=== PATIENT | male | born 1950 | race African-American/Black ===

== ENCOUNTER 2016-12-31 04:36 | Inpatient (IN) | payer MEDICARE, OTHER ==
[2016-12-31] MEDS ORDERED: ALBUTEROL SULFATE 0.083% NEB 2.5 MG/3 ML AMPUL NEB ONE ×3 (04:40→05:39)
[2016-12-31] MEDS ORDERED: IPRATROPIUM/ALBUTEROL 0.5-2.5 MG/3 ML AMPUL NEB ONE (04:40)
[2016-12-31] MEDS ORDERED: MAGNESIUM SULFATE/D5W 1 GM/100 ML RTUPB IV ONE ×2 (04:40)
--- NOTE | 2016-12-31 04:41 | ER Document Report ---
ED Respiratory Problem - General Stated Complaint: DIFFICULTY BREATHING Time seen by provider: 04:41 Mode of Arrival: Medic Information source: Patient, Emergency Med Personnel TRAVEL OUTSIDE OF THE [place] IN LAST 30 DAYS: No - HPI Patient complains to provider of: Cough, Short of breath Onset: Last week Duration: Worse/persistent Quality of pain: No pain Context: Hx COPD, Smoker Short of Breath: Severe Chest pain/discomfort: Tightness Cough: Productive Sputum amount: Small Sputum color: Yellow Sputum consistency: Mucoid EMS treatments: Bronchodilators, Solumedrol Associated symptoms: Congestion, Cough, Fever, Short of breath, Wheezing Similar symptoms previously: Yes Recently seen / treated by doctor: No Notes: Patient is a 66-year-old male who was brought to emergency room by EMS for respiratory distress, states he's had a productive cough and fever, symptoms have been worsening over the past week, patient is a smoker as well, he denies any chest pain, no vomiting or diarrhea, patient received breathing treatments as well as Solu-Medrol and Tylenol EMS in route to the hospital - Related Data Allergies/Adverse Reactions: aspirin [Aspirin] Allergy (Intermediate, Verified 09/24/16 11:33) "some swelling" Past Medical History - General Information source: Patient - Social History Smoking Status: Current Every Day Smoker Family History: Reviewed & Not Pertinent - Past Medical History Cardiac Medical History: Reports: Hx Hypercholesterolemia, Hx Hypertension - dx 2016 takes meds Denies: Hx Atrial Fibrillation, Hx Congestive Heart Failure, Hx Coronary Artery Disease, Hx Heart Attack, Hx Peripheral Vascular Disease, Hx Pulmonary Embolism, Hx Heart Murmur Pulmonary Medical History: Reports: Hx Asthma, Hx COPD - Sounds like he has smoking related lung disease, Hx Pneumonia - Denies: Hx Bronchitis, Hx Respiratory Failure, Hx Sleep Apnea, Hx Tuberculosis Neurological Medical History: Denies: Hx Cerebrovascular Accident - CT scan 10/2015 4 facial asymmetry. No stroke., Hx Seizures Endocrine Medical History: Reports: Hx Hypothyroidism. Denies: Hx Graves' Disease, Hx Hyperthyroidism Renal/ Medical History: Denies: Hx Benign Prostatic Hyperplasia, Hx End Stage Renal Disease, Hx Kidney Stones, Hx Peritoneal Dialysis Malignancy Medical History: Denies Hx Leukemia, Denies Hx Lung Cancer GI Medical History: Reports: Hx Ulcer - . Denies: Hx Crohn's Disease, Hx Gastroesophageal Reflux Disease, Hx Hiatal Hernia, Hx Irritable Bowel, Hx Liver Failure Musculoskeltal Medical History: Reports Hx Arthritis, Denies Hx Fibromyalgia, Denies Hx Multiple Sclerosis, Denies Hx Muscular Dystrophy Psychiatric Medical History: Denies: Hx Dementia Traumatic Medical History: Reports: Hx Fractures - right arm as child Infectious Medical History: Denies: Hx HIV Past Surgical History: Reports: Hx Orthopedic Surgery - L hip. Denies: Hx Appendectomy, Hx Bowel Surgery, Hx Cholecystectomy, Hx Colostomy, Hx Coronary Artery Bypass Graft, Hx Gastric Bypass Surgery, Hx Herniorrhaphy, Hx Pacemaker, Hx Tonsillectomy - Immunizations Hx Diphtheria, Pertussis, Tetanus Vaccination: Yes Review of Systems - Review of Systems Constitutional: Fever EENT: No symptoms reported Cardiovascular: No symptoms reported Respiratory: See HPI Gastrointestinal: No symptoms reported Genitourinary: No symptoms reported Male Genitourinary: No symptoms reported Musculoskeletal: No symptoms reported Skin: No symptoms reported Hematologic/Lymphatic: No symptoms reported Neurological/Psychological: No symptoms reported -: Yes All other systems reviewed and negative Physical Exam - Vital signs Vitals: Resp Pulse Ox 28 H 97 12/31/16 04:51 12/31/16 04:51 Interpretation: Tachycardic, Tachypneic - General General appearance: Appears well, Alert - HEENT Head: Normocephalic, Atraumatic Eyes: Normal Pupils: PERRL - Respiratory Respiratory status: Respiratory distress, Labored, Tachypnea Chest status: Nontender Breath sounds: Decreased air movement, Nonproductive cough, Wheezing Chest palpation: Normal - Cardiovascular Rhythm: Regular, Tachycardia Heart sounds: Normal auscultation Murmur: No - Abdominal Inspection: Normal Distension: No distension Bowel sounds: Normal Tenderness: Nontender Organomegaly: No organomegaly - Back Back: Normal, Nontender - Extremities General upper extremity: Normal inspection, Nontender, Normal color, Normal ROM , Normal temperature General lower extremity: Normal inspection, Nontender, Normal color, Normal ROM , Normal temperature, Normal weight bearing. No: Terry's sign - Neurological Neuro grossly intact: Yes Cognition: Normal Orientation: AAOx4 [place] Coma Scale Eye Opening: Spontaneous [place] Coma Scale Verbal: Oriented [place] Coma Scale Motor: Obeys Commands [place] Coma Scale Total: 15 Speech: Normal Motor strength normal: LUE, RUE, LLE, RLE Sensory: Normal - Psychological Associated symptoms: Normal affect, Normal mood - Skin Skin Temperature: Warm Skin Moisture: Dry Skin Color: Normal Course - Re-evaluation Re-evalutation: 12/31/16 05:30 Called to room by nursing staff to evaluate patient as he is trying to take all of his lines, BiPAP, monitor leads off, patient states he is having an anxiety attack, with the help of security he was helped back into bed, and given 2 mg of Ativan through the IV 12/31/16 06:06 Patient resting comfortably on BiPAP at this point, vital signs are stable, he still has diffuse wheezing bilaterally, but seems to be tolerating BiPAP much better at this point, patient was discussed with the hospitalist who agrees to admit for further evaluation and treatment - Vital Signs Vital signs: Temp Pulse Resp BP Pulse Ox 100.4 F 107 H 28 H 122/70 94 12/31/16 05:06 12/31/16 05:06 12/31/16 05:06 12/31/16 05:06 12/31/16 05:06 - Laboratory Result Diagrams: 12/31/16 05:00 12/31/16 05:00 Laboratory results interpreted by me: 12/31/16 12/31/16 12/31/16 05:00 05:00 05:00 WBC 16.0 H Hgb 13.1 L MCH 26.7 L RDW 16.8 H Absolute Neutrophils 9.4 H Absolute Lymphocytes 4.8 H Glucose 177 H Creatine Kinase 606 H CK-MB (CK-2) 5.00 H - Diagnostic Test Radiology reviewed: Image reviewed, Reports reviewed - EKG Interpretation by Me EKG shows normal: Sinus rhythm Rate: Tachycardia [place]/QRS: RBBB, LAHB/LAFB When compared to previous EKG there are: No significant change - Transfer of Care Care transferred to following provider: Dr. King Critical Care Note - Critical Care Note Total time excluding time spent on procedures (mins): 30 Comments: Patient arrived in respiratory distress with diffuse wheezing bilaterally, requiring BiPAP placement, multiple breathing treatments and IV magnesium Discharge - Discharge Clinical Impression: COPD exacerbation Condition: Fair Disposition: ADMITTED INPATIENT Admitting Provider: Hospitalist Unit Admitted: Telemetry
[2016-12-31 05:16] LABS: ABSOLUTE BASOPHILS # (AUTO) 0.1 10^3/uL (0.0-0.2); ABSOLUTE EOSINOPHILS # (AUTO) 0.3 10^3/uL (0.0-0.6); ABSOLUTE LYMPHOCYTES (AUTO) 4.8 10^3/uL (0.5-4.7); ABSOLUTE MONOCYTES (AUTO) 1.4 10^3/uL (0.1-1.4); ABSOLUTE NEUT (AUTO) 9.4 10^3/uL (1.7-8.2); BASOPHILS % (AUTO) 0.9 % (0-2); EOSINOPHILS % (AUTO) 1.7 % (0-6); HEMATOCRIT 39.9 % (37.9-51.0); HEMOGLOBIN 13.1 g/dL (13.5-17.0); HGB HCT DIFFERENCE -0.6; LYMPHOCYTES % (AUTO) 30.1 % (13-45); MEAN CORPUSCULAR HEMOGLOBIN 26.7 pg (27.0-33.4); MEAN CORPUSCULAR HGB CONC 32.8 g/dL (32.0-36.0); MEAN CORPUSCULAR VOLUME 81 fl (80-97); MONOCYTES % (AUTO) 8.8 % (3-13); RED BLOOD COUNT 4.91 10^6/uL (4.35-5.55); RED CELL DISTRIBUTION WIDTH 16.8 % (11.5-14.0); SEGMENTED NEUTROPHILS % (AUTO) 58.5 % (42-78)
[2016-12-31 05:26] LABS: ALANINE AMINOTRANSFERASE 48 U/L (21-72); ALKALINE PHOSPHATASE 98 U/L (38-126); ANION GAP 15 (5-19); ASPARTATE AMINO TRANSFERASE 51 U/L (17-59); BILIRUBIN,TOTAL 0.8 mg/dL (0.2-1.3); BLOOD UREA NITROGEN 20 mg/dL (7-20); CALCIUM 9.2 mg/dL (8.4-10.2); CARBON DIOXIDE 26 mmol/L (22-30); CHLORIDE 98 mmol/L (98-107); CREATINE KINASE 606 U/L (55-170); GLUCOSE 177 mg/dL (75-110); POTASSIUM 4.1 mmol/L (3.6-5.0); SODIUM 139.2 mmol/L (137-145); TOTAL PROTEIN 7.5 g/dL (6.3-8.2)
[2016-12-31] MEDS ORDERED: LORAZEPAM INJ 2 MG/1 ML VIAL IV ONE (05:29)
[2016-12-31] MEDS ORDERED: LORAZEPAM INJ 2 MG/1 ML VIAL ONE (05:29)
[2016-12-31 05:38] LABS: TROPONIN I 0.012 ng/mL
[2016-12-31] MEDS ORDERED: IPRATROPIUM/ALBUTEROL 0.5-2.5 MG/3 ML AMPUL NEB PRN (06:03)
[2016-12-31] MEDS ORDERED: GUAIFENESIN SYRP 200 MG/10 ML UDC PO PRN (06:03)
[2016-12-31] MEDS ORDERED: ACETAMINOPHEN 325 MG TABLET PO PRN (06:03)
[2016-12-31] MEDS ORDERED: AZITHROMYCIN INJ 500 MG VIAL IV ONE (06:06)
[2016-12-31] MEDS ORDERED: CEFTRIAXONE INJ 1000 MG VIAL IV ONE (06:06)
[2016-12-31] MEDS ORDERED: CEFEPIME 2 GM/D5W RTU 50 ML IV SCH (06:15)
[2016-12-31] MEDS ORDERED: NORMAL SALINE 1000 ML 1,000 ML IV SCH (06:15)
[2016-12-31 06:27] LABS: VENOUS BLOOD BASE EXCESS 0.6 mmol/L; VENOUS BLOOD PCO2 50.7 mmHg (35-63); VENOUS BLOOD PH 7.35 (7.30-7.42)
[2016-12-31 06:39] LABS: APPEARANCE,URINE SLIGHTLY-CLOUDY; BILIRUBIN,URINE NEGATIVE (NEGATIVE); GLUCOSE, URINE NEGATIVE (NEGATIVE); KETONES,URINE NEGATIVE (NEGATIVE); LEUKOCYTE ESTERASE,URINE NEGATIVE (NEGATIVE); NITRITE,URINE NEGATIVE (NEGATIVE); PROTEIN,URINE NEGATIVE (NEGATIVE); URINE SPECIFIC GRAVITY 1.014; UROBILINOGEN,URINE NEGATIVE mg/dL (<2.0)
[2016-12-31 06:51] LABS: URINE BARBITURATES SCREEN NEGATIVE; URINE METHADONE SCREEN NEGATIVE; URINE OPIATES LOW NEGATIVE; URINE PHENCYCLIDINE SCREEN NEGATIVE
[2016-12-31 06:53] LABS: CREATINE KINASE MB 4.47 ng/mL (<4.55)
--- NOTE | 2016-12-31 06:56 | PDOC H&P ---
History of Present Illness Admission Date/PCP: 12/31/16 06:20 MELY GARAY MD Patient complains of: Shortness of breath and cough History of Present Illness: ASTER YBARRA is a 66 year old male with a past medical history of hypertension , hypothyroidism COPD tobacco dependence and panic disorder who had been in his usual state of health until approximately 4 days ago noting excessive shortness of breath and productive cough of thick white sputum subjective fever and chills. He denies chest pain nausea vomiting infectious contacts or recent antibiotics. In the emergency room his found to have bilateral rhonchi and tachypnea in the 40s he is placed on BiPAP triggering a panic attack and receives Ativan for sedation. Past Medical History Cardiac Medical History: Reports: Hyperlipidema, Hypertension - dx 2016 takes meds Denies: Atrial Fibrillation, Congestive Heart Failure, Coronary Artery Disease, Myocardial Infarction, Peripheral Vascular Disease, Pulmonary Embolism , Heart Murmur Pulmonary Medical History: Reports: Asthma, Chronic Obstructive Pulmonary Disease (COPD) - Sounds like he has smoking related lung disease, Pneumonia - Denies: Bronchitis, Respiratory Failure, Sleep Apnea, Tuberculosis Neurological Medical History: Denies: Seizures Endocrine Medical History: Reports: Hypothyroidism Denies: Hyperthyroidism Renal/ Medical History: Denies: End Stage Renal Disease Malignancy Medical History: Denies: Breast Cancer, Cervical Cancer, Leukemia, Lung Cancer, Ovarian Cancer GI Medical History: Denies: Crohn's Disease, Gastroesophageal Reflux Disease, Hiatal Hernia Musculoskeltal Medical History: Reports: Arthritis Denies: Fibromyalgia Psychiatric Medical History: Reports: General Anxiety Disorder, Tobacco Dependency Denies: Dementia Hematology: Denies: Anemia, Hemophilia, Sickle Cell Disease Infectious Medical History: Denies: HIV Past Surgical History Past Surgical History: Reports: Orthopedic Surgery - L hip Denies: Appendectomy, Cholecystectomy, Colostomy, Coronary Artery Bypass Graft, Gastric Bypass Surgery, Herniorrhaphy, Pacemaker, Tonsillectomy Social History Information Source: Patient Smoking Status: Current Every Day Smoker Hx Recreational Drug Use: Yes - every other day Drugs: None Hx Prescription Drug Abuse: No - Advance Directive Resuscitation Status: Full Code Family History Family History: COPD Parental Family History Reviewed: Yes Children Family History Reviewed: Yes Sibling(s) Family History Reviewed.: Yes Medication/Allergy Home Medications: Simvastatin 40 mg PO QPM 05/18/14 Albuterol Sulfate [Proair HFA] 1 - 2 puff IH Q4 PRN 04/01/15 Levothyroxine Sodium 100 mcg PO QAM 04/01/15 Bupropion HCl [Bupropion HCl Sr] 150 mg PO BID 05/02/16 Losartan/Hydrochlorothiazide [Hyzaar 50-12.5 Tablet] 1 each PO QAM 05/02/16 Oxycodone HCl [Oxy-Ir 5 mg Tablet] 5 mg PO Q6HP PRN #0 tablet 05/11/16 Prednisone [Deltasone 5 mg Tablet] 2.5 mg PO QPM #0 tablet 05/11/16 Prednisone [Deltasone 5 mg Tablet] 5 mg PO QAM #0 tablet 05/11/16 Rivaroxaban [Xarelto 10 mg Tablet] 10 mg PO QHS #0 tablet 05/11/16 Amoxicillin Trihydrate [Amoxil 875 mg Tablet] 1 tab PO BID #20 tablet 08/24/16 Hydrocodone Bit/Homatropine [Hycodan Syrup 5-1.5 mg/ 5 ml Ud Cup] 10 ml PO ASDIR PRN #240 ml 08/24/16 Prednisone [Deltasone 20 mg Tablet] 20 mg PO QAM #25 tablet 08/24/16 Ibuprofen [Motrin 600 Mg Tablet] 600 mg PO TID #15 tablet 09/24/16 Prednisone [Deltasone 20 mg Tablet] 3 tab PO DAILY 4 Days 09/24/16 Allergies/Adverse Reactions: aspirin [Aspirin] Allergy (Intermediate, Verified 09/24/16 11:33) "some swelling" Review of Systems Constitutional: PRESENT: as per HPI, fatigue, fever(s) Eyes: PRESENT: as per HPI Ears: ABSENT: hearing changes Cardiovascular: ABSENT: chest pain, dyspnea on exertion, edema, orthropnea, palpitations Respiratory: PRESENT: cough, dyspnea, sputum. ABSENT: hemoptysis Gastrointestinal: ABSENT: abdominal pain, constipation, diarrhea, hematemesis, hematochezia, nausea, vomiting Genitourinary: ABSENT: dysuria, hematuria Musculoskeletal: ABSENT: joint swelling Integumentary: ABSENT: rash, wounds Neurological: ABSENT: abnormal gait, abnormal speech, confusion, dizziness, focal weakness, syncope Psychiatric: PRESENT: anxiety Endocrine: ABSENT: cold intolerance, heat intolerance, polydipsia, polyuria Hematologic/Lymphatic: ABSENT: easy bleeding, easy bruising Physical Exam Vital Signs: Temp Pulse Resp BP Pulse Ox 100.4 F 107 H 28 H 122/70 94 12/31/16 05:06 12/31/16 05:06 12/31/16 05:06 12/31/16 05:06 12/31/16 05:06 General appearance: PRESENT: cooperative, mild distress Head exam: PRESENT: atraumatic, normocephalic Eye exam: PRESENT: conjunctiva pink, EOMI, PERRLA. ABSENT: scleral icterus Ear exam: PRESENT: normal external ear exam Mouth exam: PRESENT: moist, tongue midline Neck exam: ABSENT: carotid bruit, JVD, lymphadenopathy, thyromegaly Respiratory exam: PRESENT: accessory muscle use, crackles, prolonged expiratory phas, rales, rhonchi, symmetrical, tachypnea. ABSENT: chest wall tenderness Cardiovascular exam: PRESENT: RRR. ABSENT: diastolic murmur, rubs, systolic murmur Pulses: PRESENT: normal dorsalis pedis pul GI/Abdominal exam: PRESENT: normal bowel sounds, soft. ABSENT: distended, guarding, mass, organolmegaly, rebound, tenderness Rectal exam: PRESENT: deferred Extremities exam: PRESENT: full ROM. ABSENT: calf tenderness, clubbing, pedal edema Neurological exam: PRESENT: alert, awake, oriented to person, oriented to place , oriented to time, oriented to situation, CN II-XII grossly intact. ABSENT: motor sensory deficit Psychiatric exam: PRESENT: anxious Skin exam: PRESENT: dry, intact, warm. ABSENT: cyanosis, rash Results Impressions: Chest X-Ray 12/31/16 04:40 IMPRESSION: NO ACUTE RADIOGRAPHIC FINDING IN THE CHEST. Assessment & Plan - Diagnosis (1) COPD exacerbation Is this a current diagnosis for this admission?: YesPlan: Patient will receive supplemental oxygen, albuterol Atrovent, BiPAP and symptomatically management (2) Bronchitis Is this a current diagnosis for this admission?: YesPlan: Please see #1 in addition to empiric antibiotics and tobacco cessation counseling (3) Panic attack Is this a current diagnosis for this admission?: YesPlan: Possibly secondary to hypothyroidism I'll evaluate TSH and otherwise treat symptomatically with when necessary trazodone versus benzodiazepine (4) Hypothyroid Is this a current diagnosis for this admission?: YesPlan: Unclear status possibly hyperthyroid hour evaluate TSH (5) Tobacco abuse Is this a current diagnosis for this admission?: YesPlan: Tobacco Dependence patient received tobacco cessation counseling and offered nicotine replacement options - Time Time Spent: 30 to 50 Minutes - Inpatient Certification Medical Necessity: Need Close Monitoring Due to Risk of Patient Decompensation
[2016-12-31 06:57] LABS: TROPONIN I 0.014 ng/mL
[2016-12-31] MEDS ORDERED: LEVOTHYROXINE SODIUM 0.1 MG TABLET PO SCH (08:00)
[2016-12-31] MEDS ORDERED: GLUCAGON,HUMAN RECOMB 1 MG INJ IM PRN (08:24)
[2016-12-31] MEDS ORDERED: DEXTROSE 50%-WATER 25 GM/50 ML DISP.SYRIN IV PRN ×2 (08:24)
[2016-12-31] MEDS ORDERED: DEXTROSE 40% GEL 15 GM TUBE PO PRN ×2 (08:24)
[2016-12-31] MEDS ORDERED: CEFEPIME 2 GM/D5W RTU 2 GM/50 ML RTUPB IV ONE (08:30)
[2016-12-31] MEDS ORDERED: METHYLPREDNISOLONE INJ 125 MG/2 ML SDV IV ONE (09:15)
[2016-12-31] MEDS: IPRATROPIUM/ALBUTEROL 0.5-2.5 MG/3 ML AMPUL NEB SCH ×3 (09:54→20:15)
[2016-12-31 10:20] LABS: FREE T3 2.76 pg/mL (2.77-5.27)
[2016-12-31] MEDS: GUAIFENESIN 600 MG TABLET.SA PO SCH ×2 (11:27→21:25)
[2016-12-31] MEDS: LEVOFLOXACIN 750 MG/D5W RTU 150 ML IV SCH (11:28)
[2016-12-31] MEDS: BUPROPION HCL 75 MG TABLET PO SCH ×2 (11:44→21:25)
[2016-12-31] MEDS: INSULIN LISPRO 100 UNIT/ML 3 ML VIAL SUBCUT PRN ×3 (11:50→21:38)
--- NOTE | 2016-12-31 12:09 | EKG REPORT ---
SEVERITY:- ABNORMAL ECG - SINUS TACHYCARDIA PROBABLE LEFT ATRIAL ABNORMALITY RBBB AND LPFB : Confirmed by: Marielos Arnold MD 31-Dec-2016 12:09:14
[2016-12-31 13:02] LABS: CREATINE KINASE MB 3.56 ng/mL (<4.55)
[2016-12-31 13:05] LABS: TROPONIN I < 0.012 ng/mL
[2016-12-31] MEDS ORDERED: HEPARIN SOD (PORCINE) 5,000 UNIT/ML 1 ML SYRINGE SUBCUT SCH (14:00)
[2016-12-31] MEDS: METHYLPREDNISOLONE INJ 125 MG/2 ML SDV IV SCH ×2 (14:27→21:24)
[2016-12-31] MEDS ORDERED: RIVAROXABAN 10 MG TABLET PO SCH ×2 (17:00→22:00)
[2016-12-31] MEDS: SIMVASTATIN 40 MG TABLET PO SCH (17:16)
[2016-12-31 17:17] LABS: ARTERIAL BLOOD BASE EXCESS -0.7 mmol/L; ARTERIAL BLOOD O2 SATURATION 95.7 % (94-98)
--- NOTE | 2016-12-31 17:25 | PDOC PROGRESS REPORT ---
Subjective Progress Note for:: 12/31/16 Subjective:: Patient reports he is breathing better than previously. Patient reports he's had white sputum. Patient denies chest pain, shortness of breath, abdominal pain, nausea, vomiting , fevers, chills, diarrhea, constipation, headache, new onset weakness. Physical Exam Vital Signs: Temp Pulse Resp BP Pulse Ox 97.3 F 94 20 142/57 H 99 12/31/16 15:12 12/31/16 15:12 12/31/16 15:12 12/31/16 15:12 12/31/16 15:12 Exam: General: Cushingoid appearance, Awake alert and oriented x3, mild respiratory distress HEENT: [place] like faces, AT/NC, PERRL, EOMI, oropharynx is moist, pink, no scleral icterus, no conjunctival injection Neck: No JVD, trachea midline Chest: Mild tachypnea, Coarse rhonchi bilaterally CV: Tachycardic, Regular rate and rhythm, normal S1 and S2, no rub or gallop Abdomen: Soft, nontender to palpation, nondistended, active bowel sounds; no rebound, rigidity, or guarding Extremities: No cyanosis; +clubbing; +1edema Neuro: Cranial nerves II through XII are grossly intact without focal deficits; awake alert and oriented x3 Psych: Normal mood and affect Results Laboratory Results: 12/31/16 12/31/16 06:13 06:15 VBG pH 7.35 VBG pCO2 50.7 VBG HCO3 27.0 VBG Base Excess 0.6 Urine Color YELLOW Urine Appearance SLIGHTLY-CLOUDY Urine pH 6.0 Ur Specific [place] 1.014 Urine Protein NEGATIVE Urine Glucose (UA) NEGATIVE Urine Ketones NEGATIVE Urine Blood NEGATIVE Urine Nitrite NEGATIVE Ur Leukocyte Esterase NEGATIVE Urine WBC (Auto) 0 Urine RBC (Auto) 0 12/31/16 12/31/16 12/31/16 06:13 06:13 12:19 Creatine Kinase 641 H 601 H CK-MB (CK-2) 4.47 Troponin I 0.014 NT-Pro-B Natriuret Pep 106 12/31/16 12:19 Creatine Kinase CK-MB (CK-2) 3.56 Troponin I < 0.012 NT-Pro-B Natriuret Pep Impressions: Chest X-Ray 12/31/16 04:40 IMPRESSION: NO ACUTE RADIOGRAPHIC FINDING IN THE CHEST. Assessment & Plan - Diagnosis (1) Sarcoidosis of lung Is this a current diagnosis for this admission?: YesPlan: Patient is on chronic prednisone for his sarcoid. Will give patient stress dose Solu-Medrol for this. Patient does have a mild COPD component to this. We will discuss case with his ice maker Dr. pardo. (2) COPD exacerbation Is this a current diagnosis for this admission?: YesPlan: Continue patient on Solu-Medrol. Scheduled nebulized treatments. Oxygen therapy. (3) Panic attack Is this a current diagnosis for this admission?: YesPlan: Patient received Ativan in the emergency department and clearly is still quite sleepy from this. Will consider Vistaril or Haldol for these. (4) Hypothyroid Is this a current diagnosis for this admission?: YesPlan: Check a free T3 and free T4. Patient's TSH is likely suppressed secondary to corticosteroid usage. (5) Tobacco abuse Is this a current diagnosis for this admission?: YesPlan: Nicotine patch (6) Obesity (BMI 30.0-34.9) Is this a current diagnosis for this admission?: Yes - Time Time Spent with patient: 25-34 minutes Medications reviewed and adjusted accordingly: Yes
[2016-12-31 19:26] LABS: CREATINE KINASE MB 3.75 ng/mL (<4.55)
[2016-12-31 19:27] LABS: TROPONIN I < 0.012 ng/mL
[2016-12-31] MEDS: CEFEPIME HCL 2 GM in DEXTROSE 5%-WATER 50 ML IV SCH (21:24)
[2016-12-31] MEDS ORDERED: INSULIN GLARGINE,HUM.REC.ANLOG 1,000 UNIT/10 ML UNIT SUBCUT ONE (21:35)
[2016-12-31] MEDS: INSULIN GLARGINE,HUM.REC.ANLOG 300 UNIT/3 ML INSULN.PEN SUBCUT SCH (21:40)
[2017-01-01] MEDS: IPRATROPIUM/ALBUTEROL 0.5-2.5 MG/3 ML AMPUL NEB SCH ×4 (01:37→20:04)
[2017-01-01 05:00] LABS: ABSOLUTE LYMPHOCYTES (AUTO) 1.2 10^3/uL (0.5-4.7); ABSOLUTE MONOCYTES (AUTO) 0.7 10^3/uL (0.1-1.4); BASOPHILS % (AUTO) 0.1 % (0-2); HEMATOCRIT 35.9 % (37.9-51.0); HEMOGLOBIN 11.6 g/dL (13.5-17.0); HGB HCT DIFFERENCE -1.1; LYMPHOCYTES % (AUTO) 6.5 % (13-45); MEAN CORPUSCULAR HEMOGLOBIN 26.4 pg (27.0-33.4); MEAN CORPUSCULAR HGB CONC 32.2 g/dL (32.0-36.0); MEAN CORPUSCULAR VOLUME 82 fl (80-97); MONOCYTES % (AUTO) 3.7 % (3-13); RED BLOOD COUNT 4.38 10^6/uL (4.35-5.55); RED CELL DISTRIBUTION WIDTH 16.5 % (11.5-14.0); SEGMENTED NEUTROPHILS % (AUTO) 89.7 % (42-78); WHITE BLOOD COUNT 17.9 10^3/uL (4.0-10.5)
[2017-01-01 05:22] LABS: ANION GAP 15 (5-19); BLOOD UREA NITROGEN 34 mg/dL (7-20); CALCIUM 9.7 mg/dL (8.4-10.2); CARBON DIOXIDE 24 mmol/L (22-30); CHLORIDE 97 mmol/L (98-107); CREATININE RESULT 1.28 mg/dL (0.52-1.25); GLUCOSE 326 mg/dL (75-110); SODIUM 136.3 mmol/L (137-145)
[2017-01-01 05:35] LABS: POTASSIUM 5.2 mmol/L (3.6-5.0)
[2017-01-01] MEDS: METHYLPREDNISOLONE INJ 125 MG/2 ML SDV IV SCH ×3 (06:00→20:37)
[2017-01-01] MEDS: LEVOTHYROXINE SODIUM 0.112 MG TABLET PO SCH (06:00)
[2017-01-01] MEDS: LOSARTAN POTASSIUM 50 MG TABLET PO SCH (08:16)
[2017-01-01] MEDS: CEFEPIME HCL 2 GM in DEXTROSE 5%-WATER 50 ML IV SCH ×2 (08:16→20:36)
[2017-01-01] MEDS: HYDROCHLOROTHIAZIDE 12.5 MG CAPSULE PO SCH (08:17)
[2017-01-01] MEDS: INSULIN LISPRO 100 UNIT/ML 3 ML VIAL SUBCUT PRN ×4 (08:25→22:18)
[2017-01-01] MEDS: BUPROPION HCL 75 MG TABLET PO SCH ×2 (09:00→20:38)
[2017-01-01] MEDS: LEVOFLOXACIN 750 MG/D5W RTU 150 ML IV SCH (09:00)
[2017-01-01] MEDS: GUAIFENESIN 600 MG TABLET.SA PO SCH ×2 (09:00→20:36)
--- NOTE | 2017-01-01 13:49 | PDOC PROGRESS REPORT ---
Subjective Progress Note for:: 01/01/17 Subjective:: Patient reports he still having a difficult time breathing. He reports his cough is productive of sputum. He reports that he is still quite short of breath easily upon ambulating. Patient has had several quite high blood sugars up to 400s. Patient denies abdominal pain, nausea, vomiting, fevers, chills, diarrhea, constipation, headache, new onset weakness. Physical Exam Vital Signs: Temp Pulse Resp BP Pulse Ox 97.6 F 105 H 22 H 149/101 H 87 L 01/01/17 08:09 01/01/17 08:14 01/01/17 08:14 01/01/17 08:09 01/01/17 08:14 Intake & Output 12/31/16 01/01/17 01/02/17 06:59 06:59 06:59 Intake Total 1701 Output Total 1050 Balance 651 Weight 90.7 kg Exam: General: Cushingoid appearance, Awake alert and oriented x3, mild respiratory distress HEENT: [place] like faces, AT/NC, PERRL, EOMI, oropharynx is moist, pink, no scleral icterus, no conjunctival injection Neck: No JVD, trachea midline Chest: Mild tachypnea, Rales left lower lobe, otherwise clear CV: Tachycardic, Regular rate and rhythm, normal S1 and S2, no rub or gallop Abdomen: Soft, nontender to palpation, nondistended, active bowel sounds; no rebound, rigidity, or guarding Extremities: No cyanosis; +clubbing; +1edema Neuro: Cranial nerves II through XII are grossly intact without focal deficits; awake alert and oriented x3 Psych: Normal mood and affect Results Laboratory Results: 01/01/17 04:05 01/01/17 04:05 12/31/16 01/01/17 01/01/17 17:05 04:05 04:05 WBC 17.9 H RBC 4.38 Hgb 11.6 L Hct 35.9 L MCV 82 MCH 26.4 L MCHC 32.2 RDW 16.5 H Plt Count 186 Seg Neutrophils % 89.7 H Lymphocytes % 6.5 L Monocytes % 3.7 Eosinophils % 0.0 Basophils % 0.1 Absolute Neutrophils 16.0 H Absolute Lymphocytes 1.2 Absolute Monocytes 0.7 Absolute Eosinophils 0.0 Absolute Basophils 0.0 Carbonic Acid 1.47 H HCO3/H2CO3 Ratio 17:1 ABG pH 7.34 L ABG pCO2 48.9 H ABG pO2 84.7 ABG HCO3 25.6 ABG O2 Saturation 95.7 ABG Base Excess -0.7 FiO2 35% Sodium 136.3 L Potassium 5.2 H D Chloride 97 L Carbon Dioxide 24 Anion Gap 15 BUN 34 H Creatinine 1.28 H Est GFR ( Amer) > 60 Est GFR (Non-Af Amer) 57 L Glucose 326 H Calcium 9.7 12/31/16 12/31/16 12/31/16 06:13 06:13 12:19 Creatine Kinase 641 H 601 H CK-MB (CK-2) 4.47 Troponin I 0.014 NT-Pro-B Natriuret Pep 106 12/31/16 12/31/16 12/31/16 12:19 18:41 18:41 Creatine Kinase 485 H CK-MB (CK-2) 3.56 3.75 Troponin I < 0.012 < 0.012 NT-Pro-B Natriuret Pep Impressions: Chest X-Ray 12/31/16 04:40 IMPRESSION: NO ACUTE RADIOGRAPHIC FINDING IN THE CHEST. Assessment & Plan - Diagnosis (1) Sarcoidosis of lung Is this a current diagnosis for this admission?: YesPlan: Patient is on chronic prednisone for his sarcoid. Now on Solu-Medrol for this. Patient does have a mild COPD component to this. 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 pardo. (2) COPD exacerbation Is this a current diagnosis for this admission?: YesPlan: Improving, but not back to baseline. Decrease dose of IV Solu-Medrol. Scheduled nebulized treatments. Oxygen therapy and BiPAP as needed. 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 Have increased patient's Synthroid 200 g by mouth every 6 a.m. (4) Tobacco abuse Is this a current diagnosis for this admission?: YesPlan: Nicotine patch (5) Obesity (BMI 30.0-34.9) Is this a current diagnosis for this admission?: Yes (6) Volume overload Qualifiers: Hypervolemia type: other Qualified Code(s): E87.79 - Other fluid overload Is this a current diagnosis for this admission?: YesPlan: Suspect patient is slightly volume overloaded and concern for underlying congestive heart failure. Will obtain an echo. Will give one-time dose of Lasix. (7) Hypertension Is this a current diagnosis for this admission?: YesPlan: Continue home medication. Add when necessary hydralazine - Time Time Spent with patient: 25-34 minutes Medications reviewed and adjusted accordingly: Yes
[2017-01-01] MEDS ORDERED: HYDRALAZINE HCL INJ/PF 20 MG/1 ML SDV IV PRN (13:52)
[2017-01-01] MEDS ORDERED: FUROSEMIDE INJ/PF 20 MG/2 ML SDV IV ONE (14:30)
--- NOTE | 2017-01-01 15:07 | XCELERA REPORT ---
[address] [address] Transthoracic Echocardiogram Report Name: ASTER YBARRA Age: 66 yrs Gender: Male : 1950 Patient Status: Inpatient Patient Location: [id number]\S\[id number]\S\A Study Date: 01/01/2017 01:33 PM Height: 66 in Weight: 199 lb BSA: 2.0 m2 Procedure: A complete two-dimensional transthoracic echocardiogram was performed (2D, M-mode, spectral and color flow Doppler). The study was technically difficult with many images being suboptimal in quality. Reason For Study: sarcoid, volume overload Ordering Physician: JULIANNA SANTA Performed By: Damir Pedroza Interpretation Summary The left ventricular ejection fraction is normal. Doppler measurements suggest pseudonormalized left ventricular relaxation, which is associated with grade II/IV or mild to moderate diastolic dysfunction There is borderline concentric left ventricular hypertrophy. The left ventricle is grossly normal size. Wall motion cannot be accurately commented on, but no definite regional wall motion abnormalities noted. The right ventricular systolic function is normal. The right ventricle is mildly dilated. The right atrium is normal in size The left atrial size is normal. There is a trace amount of mitral regurgitation There is no mitral valve stenosis. No aortic regurgitation is present. There is no aortic valve stenosis There is a trace or physiologic amount of tricuspid regurgitation Tricuspid regurgitation jet envelope not well defined to measure RV systolic pressure accurately. The aortic root is not well visualized but is probably normal size. The inferior vena cava appeared normal and decreased > 50% with respiration (RAP 5-10 mmHg) There is no pericardial effusion. MMode/2D Measurements \T\ Calculations RVDd: 2.0 cm LVIDd: 5.0 cm FS: 31.3 % Ao root diam: 2.9 cm IVSd: 0.89 cm LVIDs: 3.4 cm EDV(Teich): 116.0 ml LVPWd: 0.90 cm ESV(Teich): 47.7 ml Ao root area: 6.6 cm2 EF(Teich): 58.9 % LA dimension: 3.0 cm Doppler Measurements \T\ Calculations MV E max lisa: MV P1/2t max lisa: Ao V2 max: LV V1 max P.5 cm/sec 74.6 cm/sec 185.2 cm/sec 3.9 mmHg MV A max lisa: MV P1/2t: 54.4 msec Ao max PG: LV V1 max: 101.4 cm/sec 13.7 mmHg 98.2 cm/sec MV E/A: 0.72 MVA(P1/2t): 4.0 cm2 MV dec slope: 401.3 cm/sec2 PA V2 max: TR max lisa: RAP systole: 111.3 cm/sec 179.1 cm/sec 10.0 mmHg PA max P.0 mmHgTR max P.9 mmHg RVSP(TR): 22.9 mmHg Left Ventricle The left ventricle is grossly normal size. There is borderline concentric left ventricular hypertrophy. The left ventricular ejection fraction is normal. Doppler measurements suggest pseudonormalized left ventricular relaxation, which is associated with grade II/IV or mild to moderate diastolic dysfunction. Wall motion cannot be accurately commented on, but no definite regional wall motion abnormalities noted. Right Ventricle The right ventricle is mildly dilated. There is normal right ventricular wall thickness. The right ventricular systolic function is normal. Atria The right atrium is normal in size. The left atrial size is normal. Interarterial septum not well visualized and not well dopplered. Cannot comment on ASD/PFO presence. Mitral Valve The mitral valve is grossly normal. There is no mitral valve stenosis. There is a trace amount of mitral regurgitation. Aortic Valve The aortic valve is mildly calcified. The aortic valve is trileaflet. There is no aortic valve stenosis. No aortic regurgitation is present. Tricuspid Valve The tricuspid valve is not well visualized, but is grossly normal. There is no tricuspid stenosis. There is a trace or physiologic amount of tricuspid regurgitation. Tricuspid regurgitation jet envelope not well defined to measure RV systolic pressure accurately. Pulmonic Valve The pulmonic valve is not well visualized. Great Vessels The aortic root is not well visualized but is probably normal size. The inferior vena cava appeared normal and decreased > 50% with respiration (RAP 5-10 mmHg). Effusions There is no pericardial effusion. : JULIANNA SANTA > Aidan Galvez
[2017-01-01] MEDS ORDERED: RIVAROXABAN 10 MG TABLET PO SCH (17:00)
[2017-01-01] MEDS: METFORMIN HCL 500 MG TABLET PO SCH (17:48)
[2017-01-01] MEDS: SIMVASTATIN 40 MG TABLET PO SCH (17:50)
[2017-01-01] MEDS: INSULIN GLARGINE,HUM.REC.ANLOG 300 UNIT/3 ML INSULN.PEN SUBCUT SCH (22:15)
[2017-01-02] MEDS: IPRATROPIUM/ALBUTEROL 0.5-2.5 MG/3 ML AMPUL NEB SCH ×4 (02:09→20:52)
[2017-01-02] MEDS: METHYLPREDNISOLONE INJ 125 MG/2 ML SDV IV SCH (05:45)
[2017-01-02] MEDS: LEVOTHYROXINE SODIUM 0.112 MG TABLET PO SCH (05:45)
[2017-01-02 06:02] LABS: HEMATOCRIT 33.6 % (37.9-51.0); HEMOGLOBIN 10.8 g/dL (13.5-17.0); HGB HCT DIFFERENCE -1.2; MEAN CORPUSCULAR HEMOGLOBIN 26.3 pg (27.0-33.4); MEAN CORPUSCULAR VOLUME 82 fl (80-97); RED BLOOD COUNT 4.08 10^6/uL (4.35-5.55); RED CELL DISTRIBUTION WIDTH 16.5 % (11.5-14.0); WHITE BLOOD COUNT 19.1 10^3/uL (4.0-10.5)
[2017-01-02 06:05] LABS: ANION GAP 14 (5-19); BLOOD UREA NITROGEN 49 mg/dL (7-20); CALCIUM 9.7 mg/dL (8.4-10.2); CARBON DIOXIDE 22 mmol/L (22-30); CHLORIDE 101 mmol/L (98-107); CREATININE RESULT 1.43 mg/dL (0.52-1.25); GLUCOSE 331 mg/dL (75-110); POTASSIUM 4.9 mmol/L (3.6-5.0); SODIUM 137.2 mmol/L (137-145)
[2017-01-02 06:20] LABS: BASOPHILS % (MANUAL) 0 % (0-2); EOSINOPHILS % (MANUAL) 0 % (0-6); LYMPHOCYTES % (MANUAL) 6 % (13-45); TOTAL CELLS COUNTED 100
[2017-01-02 06:21] LABS: ANISOCYTOSIS 1+
[2017-01-02 06:24] LABS: HYPOCHROMASIA SLIGHT
[2017-01-02] MEDS: INSULIN LISPRO 100 UNIT/ML 3 ML VIAL SUBCUT PRN ×3 (08:01→17:22)
[2017-01-02] MEDS: LOSARTAN POTASSIUM 50 MG TABLET PO SCH (08:04)
[2017-01-02] MEDS: HYDROCHLOROTHIAZIDE 12.5 MG CAPSULE PO SCH (08:05)
[2017-01-02] MEDS: METFORMIN HCL 500 MG TABLET PO SCH ×2 (08:05→15:42)
[2017-01-02] MEDS: CEFEPIME HCL 2 GM in DEXTROSE 5%-WATER 50 ML IV SCH (08:05)
[2017-01-02] MEDS: GUAIFENESIN 600 MG TABLET.SA PO SCH (09:02)
[2017-01-02] MEDS: LEVOFLOXACIN 750 MG TABLET PO SCH (09:02)
[2017-01-02] MEDS: BUPROPION HCL 75 MG TABLET PO SCH (09:03)
[2017-01-02] MEDS ORDERED: ALBUTEROL SULFATE 0.083% NEB 2.5 MG/3 ML AMPUL NEB PRN (11:44)
--- NOTE | 2017-01-02 11:49 | PDOC PROGRESS REPORT ---
Subjective Progress Note for:: 01/02/17 Subjective:: Patient states that his breathing is much improved since admission. He still some dyspnea with exertion. Patient denies fever, chills, headache, new focal weakness, chest pain, abdominal pain, nausea, vomiting, diarrhea, constipation. Physical Exam Vital Signs: Temp Pulse Resp BP Pulse Ox 97.4 F 109 H 20 121/91 H 92 01/02/17 07:44 01/02/17 08:30 01/02/17 08:30 01/02/17 07:44 01/02/17 08:30 Intake & Output 01/01/17 01/02/17 01/03/17 06:59 06:59 06:59 Intake Total 1701 1590 Output Total 1050 450 Balance 651 1140 Weight 90.7 kg 90.5 kg GENERAL: No acute distress HEENT: Conjunctiva clear, nonicteric, moist mucous membranes, no JVD, midline trachea RESPIRATORY: Clear to auscultation bilaterally, no wheezes, no rhonchi CARDIAC: Regular rate and rhythm, no murmurs/gallops/rubs ABDOMEN: Soft, nondistended, nontender, positive bowel sounds, no rebound, no guarding EXTREMETIES: No edema, cyanosis, clubbing NEUROLOGIC: Alert, oriented to person/place/time, CN's grossly intact, no focal deficits SKIN: No rash, wounds PSYCH: Normal mood, normal affect Results Laboratory Results: 01/02/17 05:21 01/02/17 05:21 01/02/17 01/02/17 05:21 05:21 WBC 19.1 H RBC 4.08 L Hgb 10.8 L Hct 33.6 L MCV 82 MCH 26.3 L MCHC 32.0 RDW 16.5 H Plt Count 182 Seg Neutrophils % Not Reportable Lymphocytes % Not Reportable Monocytes % Not Reportable Eosinophils % Not Reportable Basophils % Not Reportable Absolute Neutrophils Not Reportable Absolute Lymphocytes Not Reportable Absolute Monocytes Not Reportable Absolute Eosinophils Not Reportable Absolute Basophils Not Reportable Sodium 137.2 Potassium 4.9 Chloride 101 Carbon Dioxide 22 Anion Gap 14 BUN 49 H Creatinine 1.43 H Est GFR ( Amer) > 60 Est GFR (Non-Af Amer) 50 L Glucose 331 H Calcium 9.7 12/31/16 12/31/16 12/31/16 06:13 06:13 12:19 Creatine Kinase 641 H 601 H CK-MB (CK-2) 4.47 Troponin I 0.014 NT-Pro-B Natriuret Pep 106 12/31/16 12/31/16 12/31/16 12:19 18:41 18:41 Creatine Kinase 485 H CK-MB (CK-2) 3.56 3.75 Troponin I < 0.012 < 0.012 NT-Pro-B Natriuret Pep Impressions: Chest X-Ray 01/02/17 06:00 IMPRESSION: NO SIGNIFICANT RADIOGRAPHIC FINDING IN THE CHEST. Assessment & Plan - Diagnosis (1) Acute hypoxemic respiratory failure Is this a current diagnosis for this admission?: YesPlan: Continue oxygen supplementation. Trial room air oxygen saturation prior to discharge to see if patient needs home oxygen. This is likely secondary to sarcoidosis and COPD exacerbation. (2) COPD exacerbation Is this a current diagnosis for this admission?: YesPlan: Discontinue IV Solu-Medrol. Start prednisone 60 mg daily. Patient is chronic prednisone dependent for the past 20 years secondary to sarcoidosis. He has had pulmonary function testing by Dr. Carlson of pulmonary medicine, but states he does not see pulmonary medicine on a regular basis. Continue duo nebs. I would like him to follow-up with Dr. Carlson after discharge. (3) Sarcoidosis of lung Is this a current diagnosis for this admission?: YesPlan: Continue steroids as mentioned above. Follow-up with Dr. Carlson of pulmonary medicine as an outpatient. (4) Tobacco abuse Is this a current diagnosis for this admission?: YesPlan: Patient is counseled on smoking cessation in light of his lung issues. (5) Hypothyroid Is this a current diagnosis for this admission?: YesPlan: Continue Synthroid. (6) Hypertension Is this a current diagnosis for this admission?: YesPlan: Continue losartan and hydrochlorothiazide. (7) Hyperglycemia Is this a current diagnosis for this admission?: YesPlan: Patient has no history of diabetes. His hemoglobin A1c is 6.4. This is likely secondary to steroid effect. Patient has been started on metformin 500 mg twice daily and Lantus 20 units daily this admission. I will probably discontinue Lantus once steroids have been reduced. Continue sliding scale insulin. (8) Left ventricular diastolic dysfunction Is this a current diagnosis for this admission?: YesPlan: Clinically compensated at this time. I would like to start patient on Toprol- XL 25 mg twice daily for this as well as hypertension. - Time Time Spent with patient: 25-34 minutes Anticipated discharge: Home Within: within 48 hours
[2017-01-02] MEDS: METOPROLOL SUCCINATE 25 MG TAB.SR.24H PO SCH (21:34)
[2017-01-02] MEDS: INSULIN GLARGINE,HUM.REC.ANLOG 300 UNIT/3 ML INSULN.PEN SUBCUT SCH (21:37)
[2017-01-03] MEDS: IPRATROPIUM/ALBUTEROL 0.5-2.5 MG/3 ML AMPUL NEB SCH ×3 (02:37→14:12)
[2017-01-03] MEDS: LEVOTHYROXINE SODIUM 0.112 MG TABLET PO SCH (05:16)
[2017-01-03 05:41] LABS: ABSOLUTE LYMPHOCYTES (AUTO) 1.3 10^3/uL (0.5-4.7); ABSOLUTE MONOCYTES (AUTO) 1.2 10^3/uL (0.1-1.4); ABSOLUTE NEUT (AUTO) 15.4 10^3/uL (1.7-8.2); BASOPHILS % (AUTO) 0.2 % (0-2); HEMATOCRIT 34.7 % (37.9-51.0); HEMOGLOBIN 11.1 g/dL (13.5-17.0); HGB HCT DIFFERENCE -1.4; LYMPHOCYTES % (AUTO) 7.1 % (13-45); MEAN CORPUSCULAR HEMOGLOBIN 26.3 pg (27.0-33.4); MEAN CORPUSCULAR HGB CONC 32.1 g/dL (32.0-36.0); MEAN CORPUSCULAR VOLUME 82 fl (80-97); MONOCYTES % (AUTO) 6.8 % (3-13); RED BLOOD COUNT 4.23 10^6/uL (4.35-5.55); RED CELL DISTRIBUTION WIDTH 16.6 % (11.5-14.0); SEGMENTED NEUTROPHILS % (AUTO) 85.9 % (42-78); WHITE BLOOD COUNT 17.9 10^3/uL (4.0-10.5)
[2017-01-03 06:00] LABS: ANION GAP 13 (5-19); BLOOD UREA NITROGEN 41 mg/dL (7-20); CALCIUM 10.3 mg/dL (8.4-10.2); CARBON DIOXIDE 24 mmol/L (22-30); CHLORIDE 102 mmol/L (98-107); CREATININE RESULT 1.06 mg/dL (0.52-1.25); GLUCOSE 150 mg/dL (75-110); POTASSIUM 4.7 mmol/L (3.6-5.0); SODIUM 138.8 mmol/L (137-145)
[2017-01-03] MEDS: HYDROCHLOROTHIAZIDE 12.5 MG CAPSULE PO SCH (08:22)
[2017-01-03] MEDS: LOSARTAN POTASSIUM 50 MG TABLET PO SCH (08:23)
[2017-01-03] MEDS: METFORMIN HCL 500 MG TABLET PO SCH (08:24)
[2017-01-03] MEDS: METOPROLOL SUCCINATE 25 MG TAB.SR.24H PO SCH (09:25)
[2017-01-03] MEDS: LEVOFLOXACIN 750 MG TABLET PO SCH (09:25)
[2017-01-03] MEDS ORDERED: PREDNISONE 20 MG TABLET PO SCH ×2 (10:00→14:00)
--- NOTE | 2017-01-03 13:56 | PDOC DISCHARGE SUMMARY ---
General - Admit/Disc Date/PCP Admission Date/Primary Care Provider: 12/31/16 06:03 MELY GARAY MD Discharge Date: 01/03/17 - Discharge Diagnosis (1) Acute hypoxemic respiratory failure Is this a current diagnosis for this admission?: Yes (2) COPD exacerbation Is this a current diagnosis for this admission?: Yes (3) Sarcoidosis of lung Is this a current diagnosis for this admission?: Yes (4) Tobacco abuse Is this a current diagnosis for this admission?: Yes (5) Hypothyroid Is this a current diagnosis for this admission?: Yes (6) Hypertension Is this a current diagnosis for this admission?: Yes (7) Hyperglycemia Is this a current diagnosis for this admission?: Yes (8) Left ventricular diastolic dysfunction Is this a current diagnosis for this admission?: Yes - Additional Information Resuscitation Status: Full Code Discharge Diet: Cardiac, Diabetic Discharge Activity: Slowly Increase Activity Home Medications: Albuterol Sulfate [Proair HFA] 2 puff IH QID 12/31/16 Losartan/Hydrochlorothiazide [Hyzaar 100-12.5 Tablet] 1 tab PO QAM 12/31/16 Albuterol Sulfate [Ventolin 0.083% Neb 2.5 mg/3 mL Ampul] 2.5 mg NEB [id number] PRN #60 vial.neb 01/03/17 Levofloxacin [Levaquin 750 mg Tablet] 750 mg PO DAILY #5 tablet 01/03/17 Levothyroxine Sodium [Synthroid 0.112 mg Tablet] 0.112 mg PO Q6AM #30 tablet Metformin HCl [Glucophage XR 500 mg Tablet] 500 mg PO BID #60 tablets 01/03/17 Metoprolol Succinate [Toprol Xl 25 mg Tab.sr] 25 mg PO Q12 #60 tab.sr.24h Prednisone [Deltasone 20 mg Tablet] 40 mg PO DAILY 30 Days 01/03/17 History of Present Illness Patient complains of: Cough and shortness of breath History of Present Illness: ASTER YBARRA is a 66 year old male with a past medical history of hypertension , hypothyroidism COPD tobacco dependence and panic disorder who had been in his usual state of health until approximately 4 days ago noting excessive shortness of breath and productive cough of thick white sputum subjective fever and chills. He denies chest pain nausea vomiting infectious contacts or recent antibiotics. In the emergency room his found to have bilateral rhonchi and tachypnea in the 40s he is placed on BiPAP triggering a panic attack and receives Ativan for sedation. Hospital Course Hospital Course: Patient waited for acute exacerbation of COPD. Also has a history of sarcoidosis. He was placed on IV antibiotics and IV Solu-Medrol. He required BiPAP earlier in admission for respiratory support. He was eventually transitioned to nasal cannula oxygen. He was then transitioned to room air. Room air O2 sat with ambulation at time of discharge is 91%. Patient will be sent on a prolonged steroid taper down to a maintenance dose eventually of 10 mg daily. He will be discharged on oral Levaquin. He will need to follow-up with Dr. Carlson of pulmonary medicine. Patient was counseled on smoking cessation. Patient has hypothyroid and thyroid function studies were performed. Synthroid was increased from 100 g daily to 112 g daily. Patient will need repeat thyroid function studies in 3 weeks. Patient has type II diabetes. His hemoglobin A1c 6.4. He was started on metformin 500 mg twice daily this admission. He was also on Lantus 20 units daily during the admission secondary to steroid-induced hyperglycemia. Lantus is being discontinued on discharge. Blood glucose is stable at time of discharge. Physical Exam Vital Signs: Temp Pulse Resp BP Pulse Ox 98.1 F 77 22 H 131/70 H 100 01/03/17 11:35 01/03/17 11:35 01/03/17 11:35 01/03/17 11:35 01/03/17 11:35 Intake & Output 01/02/17 01/03/17 01/04/17 06:59 06:59 06:59 Intake Total 1590 1115 Output Total 450 200 Balance 1140 915 Weight 90.5 kg 90.3 kg GENERAL: No acute distress HEENT: Conjunctiva clear, nonicteric, moist mucous membranes, no JVD, midline trachea RESPIRATORY: Mild Inspiratory/expiratory wheezes, good air excursion CARDIAC: Regular rate and rhythm, no murmurs/gallops/rubs ABDOMEN: Soft, nondistended, nontender, positive bowel sounds, no rebound, no guarding EXTREMETIES: No edema, cyanosis, clubbing NEUROLOGIC: Alert, oriented to person/place/time, CN's grossly intact, no focal deficits SKIN: No rash, wounds PSYCH: Normal mood, normal affect Results Laboratory Results: 01/03/17 05:07 01/03/17 05:07 01/03/17 01/03/17 05:07 05:07 WBC 17.9 H RBC 4.23 L Hgb 11.1 L Hct 34.7 L MCV 82 MCH 26.3 L MCHC 32.1 RDW 16.6 H Plt Count 197 Seg Neutrophils % 85.9 H Lymphocytes % 7.1 L Monocytes % 6.8 Eosinophils % 0.0 Basophils % 0.2 Absolute Neutrophils 15.4 H Absolute Lymphocytes 1.3 Absolute Monocytes 1.2 Absolute Eosinophils 0.0 Absolute Basophils 0.0 Sodium 138.8 Potassium 4.7 Chloride 102 Carbon Dioxide 24 Anion Gap 13 BUN 41 H Creatinine 1.06 Est GFR ( Amer) > 60 Est GFR (Non-Af Amer) > 60 Glucose 150 H Calcium 10.3 H 12/31/16 17:15 Sputum Gram Stain - Final 12/31/16 17:15 Sputum Sputum Culture - Final Group F Beta Streptococcus Normal Vianey 12/31/16 12/31/16 12/31/16 06:13 06:13 12:19 Creatine Kinase 641 H 601 H CK-MB (CK-2) 4.47 Troponin I 0.014 NT-Pro-B Natriuret Pep 106 12/31/16 12/31/16 12/31/16 12:19 18:41 18:41 Creatine Kinase 485 H CK-MB (CK-2) 3.56 3.75 Troponin I < 0.012 < 0.012 NT-Pro-B Natriuret Pep Labs- Last Values WBC 17.9 10^3/uL (4.0-10.5) H 01/03/17 05:07 RBC 4.23 10^6/uL (4.35-5.55) L 01/03/17 05:07 Hgb 11.1 g/dL (13.5-17.0) L 01/03/17 05:07 Hct 34.7 % (37.9-51.0) L 01/03/17 05:07 MCV 82 fl (80-97) 01/03/17 05:07 MCH 26.3 pg (27.0-33.4) L 01/03/17 05:07 MCHC 32.1 g/dL (32.0-36.0) 01/03/17 05:07 RDW 16.6 % (11.5-14.0) H 01/03/17 05:07 Plt Count 197 10^3/uL (150-450) 01/03/17 05:07 Total Counted 100 01/02/17 05:21 Seg Neutrophils % 85.9 % (42-78) H 01/03/17 05:07 Seg Neuts % (Manual) 89 % (42-78) H 01/02/17 05:21 Lymphocytes % 7.1 % (13-45) L 01/03/17 05:07 Lymphocytes % (Manual) 6 % (13-45) L 01/02/17 05:21 Monocytes % 6.8 % (3-13) 01/03/17 05:07 Monocytes % (Manual) 5 % (3-13) 01/02/17 05:21 Eosinophils % 0.0 % (0-6) 01/03/17 05:07 Eosinophils % (Manual) 0 % (0-6) 01/02/17 05:21 Basophils % 0.2 % (0-2) 01/03/17 05:07 Basophils % (Manual) 0 % (0-2) 01/02/17 05:21 Absolute Neutrophils 15.4 10^3/uL (1.7-8.2) H 01/03/17 05:07 Abs Neuts (Manual) 17.0 10^3/uL (1.7-8.2) H 01/02/17 05:21 Absolute Lymphocytes 1.3 10^3/uL (0.5-4.7) 01/03/17 05:07 Abs Lymphs (Manual) 1.1 10^3/uL (0.5-4.7) 01/02/17 05:21 Absolute Monocytes 1.2 10^3/uL (0.1-1.4) 01/03/17 05:07 Abs Monocytes (Manual) 1.0 10^3/uL (0.1-1.4) 01/02/17 05:21 Absolute Eosinophils 0.0 10^3/uL (0.0-0.6) 01/03/17 05:07 Absolute Eos (Manual) 0.0 10^3/uL (0.0-0.6) 01/02/17 05:21 Absolute Basophils 0.0 10^3/uL (0.0-0.2) 01/03/17 05:07 Abs Basophils (Manual) 0.0 10^3/uL (0.0-0.2) 01/02/17 05:21 Platelet Comment ADEQUATE 01/02/17 05:21 Hypochromasia SLIGHT 01/02/17 05:21 Anisocytosis 1+ 01/02/17 05:21 Carbonic Acid 1.47 mmol/L (1.05-1.35) H 12/31/16 17:05 HCO3/H2CO3 Ratio 17:1 12/31/16 17:05 ABG pH 7.34 (7.35-7.45) L 12/31/16 17:05 ABG pCO2 48.9 mmHg (35-45) H 12/31/16 17:05 ABG pO2 84.7 mmHg (80-100) 12/31/16 17:05 ABG HCO3 25.6 mmol/L (20-26) 12/31/16 17:05 ABG Total CO2 27.1 mmol/L (23-27) H 12/31/16 17:05 ABG O2 Saturation 95.7 % (94-98) 12/31/16 17:05 ABG Base Excess -0.7 mmol/L 12/31/16 17:05 VBG pH 7.35 (7.30-7.42) 12/31/16 06:13 VBG pCO2 50.7 mmHg (35-63) 12/31/16 06:13 VBG HCO3 27.0 mmol/L (20-32) 12/31/16 06:13 VBG Base Excess 0.6 mmol/L 12/31/16 06:13 FiO2 35% 12/31/16 17:05 Sodium 138.8 mmol/L (137-145) 01/03/17 05:07 Potassium 4.7 mmol/L (3.6-5.0) 01/03/17 05:07 Chloride 102 mmol/L (98-107) 01/03/17 05:07 Carbon Dioxide 24 mmol/L (22-30) 01/03/17 05:07 Anion Gap 13 (5-19) 01/03/17 05:07 BUN 41 mg/dL (7-20) H 01/03/17 05:07 Creatinine 1.06 mg/dL (0.52-1.25) 01/03/17 05:07 Est GFR ( Amer) > 60 (>60) 01/03/17 05:07 Est GFR (Non-Af Amer) > 60 (>60) 01/03/17 05:07 Glucose 150 mg/dL (75-110) H 01/03/17 05:07 POC Glucose 123 mg/dL (70-110) H 01/03/17 11:09 Hemoglobin A1c % 6.4 % (4.7-6.0) H 12/31/16 05:00 Calcium 10.3 mg/dL (8.4-10.2) H 01/03/17 05:07 Total Bilirubin 0.8 mg/dL (0.2-1.3) 12/31/16 05:00 Direct Bilirubin 0.0 mg/dL (0.0-0.3) 12/31/16 05:00 AST 51 U/L (17-59) 12/31/16 05:00 ALT 48 U/L (21-72) 12/31/16 05:00 Alkaline Phosphatase 98 U/L (38-126) 12/31/16 05:00 Creatine Kinase 485 U/L (55-170) H 12/31/16 18:41 CK-MB (CK-2) 3.75 ng/mL (<4.55) 12/31/16 18:41 Troponin I < 0.012 ng/mL 12/31/16 18:41 NT-Pro-B Natriuret Pep 106 pg/mL (5-900) 12/31/16 06:13 Total Protein 7.5 g/dL (6.3-8.2) 12/31/16 05:00 Albumin 4.0 g/dL (3.5-5.0) 12/31/16 05:00 TSH < 0.02 uIU/mL (0.47-4.68) L 12/31/16 05:00 Free T4 0.73 ng/dL (0.78-2.19) L 12/31/16 05:00 Free T3 pg/mL 2.76 pg/mL (2.77-5.27) L 12/31/16 05:00 Urine Color YELLOW 12/31/16 06:15 Urine Appearance SLIGHTLY-CLOUDY 12/31/16 06:15 Urine pH 6.0 (5.0-9.0) 12/31/16 06:15 Ur Specific Zachary 1.014 12/31/16 06:15 Urine Protein NEGATIVE mg/dL (NEGATIVE) 12/31/16 06:15 Urine Glucose (UA) NEGATIVE mg/dL (NEGATIVE) 12/31/16 06:15 Urine Ketones NEGATIVE mg/dL (NEGATIVE) 12/31/16 06:15 Urine Blood NEGATIVE (NEGATIVE) 12/31/16 06:15 Urine Nitrite NEGATIVE (NEGATIVE) 12/31/16 06:15 Urine Bilirubin NEGATIVE (NEGATIVE) 12/31/16 06:15 Urine Urobilinogen NEGATIVE mg/dL (<2.0) 12/31/16 06:15 Ur Leukocyte Esterase NEGATIVE (NEGATIVE) 12/31/16 06:15 Urine WBC (Auto) 0 /HPF 12/31/16 06:15 Urine RBC (Auto) 0 /HPF 12/31/16 06:15 Squamous Epi Cells Auto <1 /HPF 12/31/16 06:15 Urine Mucus (Auto) RARE /LPF 12/31/16 06:15 Urine Ascorbic Acid NEGATIVE (NEGATIVE) 12/31/16 06:15 Urine Opiates Screen NEGATIVE 12/31/16 06:15 Urine Methadone Screen NEGATIVE 12/31/16 06:15 Ur Barbiturates Screen NEGATIVE 12/31/16 06:15 Ur Phencyclidine Scrn NEGATIVE 12/31/16 06:15 Ur Amphetamines Screen NEGATIVE 12/31/16 06:15 U Benzodiazepines Scrn NEGATIVE 12/31/16 06:15 Urine Cocaine Screen NEGATIVE 12/31/16 06:15 U Marijuana (THC) Screen UNCONFIRMED POSITIVE 12/31/16 06:15 Impressions: Chest X-Ray 01/02/17 06:00 IMPRESSION: NO SIGNIFICANT RADIOGRAPHIC FINDING IN THE CHEST. Qualifiers PATEINT BEING DISCHARGED WITH ANY OF THE FOLLOWING DIAGNOSIS?: No Plan Time Spent: Less than 30 Minutes
[2017-01-03 14:31] VITALS: BP 122/70
--- NOTE | 2017-01-23 18:19 | Progress Note ---
Provider Note Provider Note: Addendum to discharge summary: Patient does have acute exacerbation associated was tripped a couple infection.
== END 2017-01-03 15:26 | disposition home or self-care (01) | DRG 190 ==
LOC: ER 04:36 → EH 06:03 → UNDOADMIN 06:20 → 4N 11:07
PROVIDERS: ADMIT Internal Medicine; ATTEND Internal Medicine
PROC: 5A09457 Assistance with Respiratory Ventilation, 24-96 Consecutive Hours, Continuous Positive Airway Pressure (ICD-10-PCS; principal; 2016-12-31)
DX: J44.1 Chronic obstructive pulmonary disease with (acute) exacerbation (principal); J96.01 Acute respiratory failure with hypoxia; D86.0 Sarcoidosis of lung; F17.200 Nicotine dependence, unspecified, uncomplicated; I10 Essential (primary) hypertension; E03.9 Hypothyroidism, unspecified; F41.1 Generalized anxiety disorder; F41.0 Panic disorder [episodic paroxysmal anxiety]; E11.65 Type 2 diabetes mellitus with hyperglycemia; E78.5 Hyperlipidemia, unspecified; E66.9 Obesity, unspecified; E87.70 Fluid overload, unspecified; E87.79 Other fluid overload; Z68.32 Body mass index [BMI] 32.0-32.9, adult; Z88.6 Allergy status to analgesic agent; Z79.899 Other long term (current) drug therapy
CPT/HCPCS: 36415; 36600; 71010; 71020; 80048; 80053; 80307; 81001; 82550; 82553; 82803; 82962; 83036; 83880; 84439; 84443; 84481; 84484; 85025; 87040; 87070; 87077; 87205; 93005; 93010; 93306; 94640; 94660; 94667; 94668; 94799; 96365; 96375; 99291; J0456; J0692; J0696; J1815; J1940; J1956; J2060; J2930; J3475; J3490; J7030; J7512; J7620

== ENCOUNTER 2017-03-04 16:01 | Emergency (ER) | payer MEDICARE, OTHER ==
[2017-03-04] MEDS ORDERED: IPRATROPIUM/ALBUTEROL 0.5-2.5 MG/3 ML AMPUL NEB ONE (17:33)
[2017-03-04] MEDS ORDERED: PREDNISONE 20 MG TABLET PO ONE (17:33)
[2017-03-04] MEDS: ALBUTEROL SULFATE 0.083% NEB 2.5 MG/3 ML AMPUL NEB SCH ×2 (18:24→18:43)
[2017-03-04] MEDS ORDERED: ALBUTEROL SULFATE HFA (90 MCG/PUFF) 8 GM MDI (1 MDI/ER DISP) IH ONE (19:04)
--- NOTE | 2017-03-04 19:11 | ER Document Report ---
HPI - HPI Patient complains to provider of: medication refill, SOB Pain Level: 3 Context: Patient is a 66-year-old male presents for medication refill but admits that he is ran out of Ventolin because he has been using it more often than prescribed due to shortness of breath. Patient states that his shortness of breath and cough been worse over the past 5 days. He is trying to quit smoking. admits to KELLY. Otherwise he denies any lightheadedness, chest pain. 1/2 pack a day smoker. chart review shows h/o COPD - REPRODUCTIVE Reproductive: DENIES: : - DERM Skin Color: Normal Past Medical History - Social History Smoking Status: Current Every Day Smoker Family History: COPD Patient has suicidal ideation: No Patient has homicidal ideation: No - Past Medical History Cardiac Medical History: Reports: Hx Hypercholesterolemia, Hx Hypertension - dx 2016 takes meds Denies: Hx Atrial Fibrillation, Hx Congestive Heart Failure, Hx Coronary Artery Disease, Hx Heart Attack, Hx Peripheral Vascular Disease, Hx Pulmonary Embolism, Hx Heart Murmur Pulmonary Medical History: Reports: Hx Asthma, Hx COPD - Sounds like he has smoking related lung disease, Hx Pneumonia - Denies: Hx Bronchitis, Hx Respiratory Failure, Hx Sleep Apnea, Hx Tuberculosis Neurological Medical History: Denies: Hx Cerebrovascular Accident - CT scan 10/2015 4 facial asymmetry. No stroke., Hx Seizures Endocrine Medical History: Reports: Hx Hypothyroidism. Denies: Hx Graves' Disease, Hx Hyperthyroidism Renal/ Medical History: Denies: Hx Benign Prostatic Hyperplasia, Hx End Stage Renal Disease, Hx Kidney Stones, Hx Peritoneal Dialysis Malignancy Medical History: Denies Hx Leukemia, Denies Hx Lung Cancer GI Medical History: Reports: Hx Ulcer - . Denies: Hx Crohn's Disease, Hx Gastroesophageal Reflux Disease, Hx Hiatal Hernia, Hx Irritable Bowel, Hx Liver Failure Musculoskeltal Medical History: Reports Hx Arthritis, Denies Hx Fibromyalgia, Denies Hx Multiple Sclerosis, Denies Hx Muscular Dystrophy Psychiatric Medical History: Denies: Hx Dementia, Hx Depression Traumatic Medical History: Reports: Hx Fractures - right arm as child Infectious Medical History: Denies: Hx HIV Past Surgical History: Reports: Hx Orthopedic Surgery - L hip. Denies: Hx Appendectomy, Hx Bowel Surgery, Hx Cholecystectomy, Hx Colostomy, Hx Coronary Artery Bypass Graft, Hx Gastric Bypass Surgery, Hx Herniorrhaphy, Hx Pacemaker, Hx Tonsillectomy - Immunizations Hx Diphtheria, Pertussis, Tetanus Vaccination: Yes Vertical Provider Document - CONSTITUTIONAL Agree With Documented VS: Yes Exam Limitations: No Limitations General Appearance: WD/WN, No Apparent Distress Notes: PHYSICAL EXAM GENERAL: Alert, interacts well. HEAD: Normocephalic, atraumatic. EYES: Pupils equal, round, and reactive to light. Extraocular movements intact. ENT: Oral mucosa moist, tongue midline. NECK: Full range of motion. Supple. Trachea midline. LUNGS: Bilateral moderate ins/exp wheezes. rales, or rhonchi. No respiratory distress. HEART: Regular rate and rhythm. No murmurs, gallops, or rubs. EXTREMITIES: Moves all 4 extremities spontaneously. No edema, radial and dorsalis pedis pulses 2/4 bilaterally. No cyanosis. NEUROLOGICAL: Alert and oriented x4. Normal speech. PSYCH: Normal affect, normal mood. SKIN: Warm, dry, normal turgor. No rashes or lesions noted. - INFECTION CONTROL TRAVEL OUTSIDE OF THE [place] IN LAST 30 DAYS: No - RESPIRATORY O2 Sat by Pulse Oximetry: 95 Course - Re-evaluation Re-evalutation: 03/04/17 21:19 Patient received DuoNeb and albuterol treatments. No evidence of cardiopulmonary process on chest x-ray. Will discharge patient home on prednisone and Ventolin and to follow-up with primary care this week - Vital Signs Vital signs: Temp Pulse Resp BP Pulse Ox 98.2 F 86 20 179/66 H 95 03/04/17 16:58 03/04/17 16:58 03/04/17 16:58 03/04/17 16:58 03/04/17 16:58 - Diagnostic Test Radiology reviewed: Image reviewed, Reports reviewed Discharge - Discharge Clinical Impression: COPD exacerbation Condition: Good Disposition: HOME, SELF-CARE Additional Instructions: BRONCHITIS: You have acute bronchitis. This disease is an infection or inflammation of the air passageways in your lungs. Symptoms usually include cough, low grade fever, shortness of breath, and wheezing. The cough usually persists for a couple of weeks. Most cases of bronchitis get better without antibiotics. We prescribe antibiotics when we believe bacteria are damaging your airways, or if there's high risk the bronchitis will worsen into pneumonia. Increase your fluid intake. A cool mist humidifier may make your lungs more comfortable. An expectorant (cough medicine that loosens phlegm) can help. If you smoke, STOP!!! Recovery from bronchitis can be somewhat slow, but you should see improvement within a day or two. Repeated episodes of bronchitis may result in lung damage -- for example, chronic bronchitis, recurrent pneumonias, or emphysema. Call the doctor if you develop increasing fever, shortness of breath, chest pain, bloody sputum, or otherwise worsen. If you have not improved at all after several days, contact the physician. BRONCHITIS WITH BRONCHOSPASM (WHEEZING): You have bronchitis with bronchospasm (wheezing). Sometimes people develop wheezing with a chest cold. This occurs either because of an underlying tendency toward asthma or because the virus itself irritates the bronchial tubes. This irritation causes cough, shortness of breath, and wheezing. Emergency treatment of bronchospasm may include adrenaline shots or bronchodilator aerosol. You may feel lightheaded and have a rapid pulse for an hour or two. Rest and get plenty of fluids. At home, we'll treat you with a bronchodilator inhaler. Corticosteroids may be required for some patients. Until you recover, avoid chemical fumes, dusts, pollens, and exercising in very cold or dry air. If you smoke, stop now! Most cases of bronchitis get better without antibiotics. We prescribe antibiotics when we believe bacteria are damaging your airways, or if there's high risk the bronchitis will worsen into pneumonia. Increase your fluid intake. A cool mist humidifier may make your lungs more comfortable. An expectorant (cough medicine that loosens phlegm) can help. Repeated episodes of bronchitis and bronchospasm may result in lung damage -- for example, chronic bronchitis, recurrent pneumonias, or emphysema. If you develop a fever, increased wheezing, chest pain, or severe shortness of breath, you should contact the doctor immediately. DECONGESTANT MEDICATION: A decongestant medicine has been prescribed. Often this medicine is combined in the same tablet with an antihistamine or expectorant. This type of medicine is helpful in treating a bad cold or sinus condition, as well as in treatment of the nasal congestion of hay fever. It is not of much benefit for lung infections. Decongestant medicines are related to stimulants. They can cause an increase in blood pressure and heart rate. Persons with heart disease and high blood pressure should not take decongestants without discussing this with the physician. If you develop palpitations, chest pain, headache, or tremors, stop the medicine and consult your physician. COUGH-SUPPRESSANT & EXPECTORANT MEDICATION: You are to use a cough medication as needed for relief of symptoms. This medicine is a combination of an expectorant (to make the mucous thinner and more easily "coughed up") and a cough suppressant (to reduce the frequency of coughing). The cough-suppressant medicine is related to narcotics. You may experience mild nausea and sleepiness. Some patients who are very sensitive to narcotics may have stomach pain from this medicine. Taking the medicine with food reduces these side effects. Do not drive or work with machinery until you know how this medicine affects you. The expectorant should have no side effects. Iodine-containing expectorants (such as organidin) should not be taken by persons with active thyroid disease unless approved by your doctor. Call the doctor if you develop shortness of breath, hives, rash, itching, lightheadedness, or severe nausea and vomiting. INHALED BRONCHODILATORS: You have received a treatment of and/or prescription for an inhaled bronchodilator -- a medication which stimulates the airways in the lung to dilate. This improves the flow of air in asthma, bronchitis, and emphysema. These medicines have some similarity to adrenaline, and can cause similar side effects: shakiness, racing heart, and a sense of nervousness. These side effects decrease with time. Contact your doctor if these side effects are severe. Do not over-use the medicine. Too-frequent use of the inhaler may make it ineffective. Call your doctor if the inhaler is not controlling your symptoms at the prescribed doses. STEROID MEDICATION: You have been given an injection of or oral medicine of the cortisone/ steroid class. This medication is used to control inflammation or allergy. Sam t is usually only given for a short period of time, until the acute process subsides. There are usually no side effects from short-term use of cortisone-like medications. Some persons feel an increased sense of well-being and are not sleepy at bedtime. Long-term use of cortisone medications is best avoided, unless required for a severe condition. If your condition does not remit, or relapses after the course of corticosteroid medication, you should consult your physician. USE OF ACETAMINOPHEN (Tylenol): Acetaminophen may be taken for pain relief or fever control. It's much safer than aspirin, offering a wider range of "safe" dosages. It is safe during . Some brand names are Tylenol, Panadol, Datril, Anacin 3, Tempra, and Liquiprin. Acetaminophen can be repeated every four hours. The following are maximum recommended dosages: >89 pounds or adults 650 mg to 900 mg Acetaminophen can be repeated every four hours. Maximum dose not to exceed 4000 mg a day. SMOKING: If you smoke, you should stop smoking. The tar and chemicals in cigarette smoke are harmful. Smoking has been shown to cause: emphysema chronic bronchitis lung cancer mouth and throat cancer stomach and pancreas cancer premature aging defects In addition, smoking increases ear and lung infections in children of smokers. FOLLOW-UP CARE: If you have been referred to a physician for follow-up care, call the physician s office for an appointment as you were instructed or within the next two days. If you experience worsening or a significant change in your symptoms, notify the physician immediately or return to the Emergency Department at any time for re-evaluation. Prescriptions: Prednisone 20 mg PO TID 3 Days Forms: Elevated Blood Pressure Referrals: MELY GARAY MD [Primary Care Provider] - Follow up in 3-5 days
[2017-03-04 19:18] VITALS: BP 159/53
== END 2017-03-04 19:13 | disposition home or self-care (01) ==
LOC: ER 16:01
DX: J44.1 Chronic obstructive pulmonary disease with (acute) exacerbation (principal); R06.02 Shortness of breath; F17.210 Nicotine dependence, cigarettes, uncomplicated
CPT/HCPCS: 94640 ×2; 99282; 71020; A9270 ×3; J3490; J7512; J7620

== ENCOUNTER 2017-11-04 12:38 | Emergency (ER) | payer OTHER, MEDICARE, MEDICAID ==
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
[2017-11-04] MEDS ORDERED: ACETAMINOPHEN 325 MG TABLET PO ONE (13:42)
[2017-11-04 14:07] VITALS: BP 130/89
== END 2017-11-04 14:04 | disposition home or self-care (01) ==
LOC: ER 12:38
DX: S39.012A Strain of muscle, fascia and tendon of lower back, initial encounter (principal); V49.60XA Unspecified car occupant injured in collision with unspecified motor vehicles in traffic accident, initial encounter; I10 Essential (primary) hypertension; J44.9 Chronic obstructive pulmonary disease, unspecified; F17.200 Nicotine dependence, unspecified, uncomplicated
CPT/HCPCS: 99283

== ENCOUNTER → 2018-03-25 | Outpatient (CLI) | payer MEDICARE ==
[2018-03-25 13:26] LABS: ALANINE AMINOTRANSFERASE 19 U/L (21-72); ALBUMIN 4.2 g/dL (3.5-5.0); ALKALINE PHOSPHATASE 85 U/L (38-126); ANION GAP 11 (5-19); ASPARTATE AMINO TRANSFERASE 18 U/L (17-59); BILIRUBIN,DIRECT 0.2 mg/dL (0.0-0.4); BILIRUBIN,TOTAL 0.2 mg/dL (0.2-1.3); BLOOD UREA NITROGEN 15 mg/dL (7-20); CALCIUM 9.9 mg/dL (8.4-10.2); CARBON DIOXIDE 31 mmol/L (22-30); CHLORIDE 103 mmol/L (98-107); CHOLESTEROL 206.54 mg/dL (0-200); GLUCOSE 91 mg/dL (75-110); POTASSIUM 4.6 mmol/L (3.6-5.0); SODIUM 144.7 mmol/L (137-145); TOTAL PROTEIN 7.8 g/dL (6.3-8.2); TRIGLYCERIDES 234 mg/dL (<150)
[2018-03-25 13:36] LABS: DIRECT LDL 51 mg/dL (<100)
[2018-03-25 13:41] LABS: VLDL CHOLESTEROL 46.8 mg/dL (10-31)
== END ==
LOC: OD 11:36
PROVIDERS: ATTEND Internal Medicine
DX: I10 Essential (primary) hypertension (principal); E78.00 Pure hypercholesterolemia, unspecified; Z79.899 Other long term (current) drug therapy
CPT/HCPCS: 36415; 80053; 80061; 83735

== ENCOUNTER → 2018-04-01 | Outpatient (CLI) | payer MEDICARE ==
--- NOTE | 2018-04-02 14:50 | RADIOLOGY REPORT (SQ) ---
EXAM DESCRIPTION: MRI LUMBAR SPINE WITHOUT COMPLETED DATE/TIME: 04/01/2018 9:12 pm REASON FOR STUDY: M54.16 RADICULOPATHY, LUMBAR REGION M54.16 RADICULOPATHY, LUMBAR REGION COMPARISON: None. TECHNIQUE: Sagittal and Axial imaging includes T1, T2, STIR and gradient echo sequences. Coronal T2/ HASTE imaging. LIMITATIONS: None. FINDINGS: VISUALIZED UPPER ABDOMEN: Limited evaluation. No acute or suspicious findings suggested. SEGMENTATION: No transitional anatomy. The lowest well-developed disc space is labeled L5-S1. ALIGNMENT: Anatomic. VERTEBRAE: Intact. BONE MARROW: Normal. No marrow replacement or reactive changes. DISC SIGNAL: Normal. No significant abnormal signal or loss of height. POSTERIOR ELEMENTS: Generally intact. No pars defect evident. HARDWARE: None in the spine. CORD AND CONUS: Normal in size and signal intensity. Conus at the L1 level. SOFT TISSUES: No aortic aneurysm seen. No bulky retroperitoneal adenopathy or mass. No paraspinal mas s or fluid. T11-12: At the upper edge of the field of view. Mild bilateral facet hypertrophy. No central or fo raminal encroachment. T12-L1: Mild bilateral facet and ligament hypertrophy. No central or foraminal encroachment. L1-L2: Mild bilateral facet and ligament hypertrophy. No central or foraminal encroachment. L2-L3: Mild bilateral facet and ligament hypertrophy. No central or foraminal encroachment. L3-L4: Mild bilateral facet and ligament hypertrophy. No central or foraminal encroachment L4-L5: Mild bilateral facet and ligament hypertrophy. No central or foraminal encroachment L5-S1: Mild bilateral facet and ligament hypertrophy. No central or foraminal encroachment SACRUM: Visualized upper sacrum intact. OTHER: No other significant findings. IMPRESSION: Mild diffuse lumbar facet arthropathy. No high-grade central or foraminal encroachment TECHNICAL DOCUMENTATION: JOB ID: [id number]- All Rights Reserved Reading location - IP/workstation name: [email or web address]
== END ==
LOC: RAD 18:32
PROVIDERS: ATTEND Orthopaedic Surgery
DX: M54.16 Radiculopathy, lumbar region (principal)
CPT/HCPCS: 72148

== ENCOUNTER → 2018-10-25 | Outpatient (CLI) | payer MEDICARE, OTHER ==
--- NOTE | 2018-10-25 11:28 | RADIOLOGY REPORT (SQ) ---
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 NUMBER OF VIEWS: Three views. TECHNIQUE: Internal rotation, external rotation, and Y view images acquired of the right shoulder. LIMITATIONS: None. FINDINGS: MINERALIZATION: Normal. BONES: No acute fracture or dislocation. No worrisome bone lesions. No significant osteophytes. GLENOHUMERAL JOINT: No significant findings. ACROMIOCLAVICULAR JOINT: No large osteophytes. SOFT TISSUES: No calcifications. VISUALIZED RIBS, SPINE, AND LUNG: No other significant finding. OTHER: No other significant finding. IMPRESSION: NEGATIVE STUDY OF THE RIGHT SHOULDER. NO EXPLANATION FOR PAIN. TECHNICAL DOCUMENTATION: JOB ID: [id number] [employer]- All Rights Reserved Reading location - IP/workstation name: [email or web address]
[2018-10-25 11:31] LABS: ABSOLUTE BASOPHILS # (AUTO) 0.1 10^3/uL (0.0-0.2); ABSOLUTE EOSINOPHILS # (AUTO) 0.1 10^3/uL (0.0-0.6); ABSOLUTE LYMPHOCYTES (AUTO) 4.1 10^3/uL (0.5-4.7); ABSOLUTE MONOCYTES (AUTO) 0.6 10^3/uL (0.1-1.4); ABSOLUTE NEUT (AUTO) 8.6 10^3/uL (1.7-8.2); BASOPHILS % (AUTO) 0.6 % (0-2); HEMATOCRIT 38.8 % (37.9-51.0); HEMOGLOBIN 12.7 g/dL (13.5-17.0); LYMPHOCYTES % (AUTO) 30.5 % (13-45); MEAN CORPUSCULAR HEMOGLOBIN 24.4 pg (27.0-33.4); MEAN CORPUSCULAR HGB CONC 32.7 g/dL (32.0-36.0); MEAN CORPUSCULAR VOLUME 75 fl (80-97); MONOCYTES % (AUTO) 4.5 % (3-13); PLATELET COUNT 260 10^3/uL (150-450); RED CELL DISTRIBUTION WIDTH 19.2 % (11.5-14.0); SEGMENTED NEUTROPHILS % (AUTO) 63.4 % (42-78); TOTAL CELLS COUNTED % (AUTO) 100 %; WHITE BLOOD COUNT 13.6 10^3/uL (4.0-10.5)
[2018-10-25 12:12] LABS: ALANINE AMINOTRANSFERASE 29 U/L (21-72); ALBUMIN 4.1 g/dL (3.5-5.0); ALKALINE PHOSPHATASE 111 U/L (38-126); ANION GAP 10 (5-19); ASPARTATE AMINO TRANSFERASE 19 U/L (17-59); BILIRUBIN,DIRECT 0.1 mg/dL (0.0-0.4); BILIRUBIN,TOTAL 0.3 mg/dL (0.2-1.3); BLOOD UREA NITROGEN 10 mg/dL (7-20); CALCIUM 9.3 mg/dL (8.4-10.2); CARBON DIOXIDE 28 mmol/L (22-30); CHLORIDE 98 mmol/L (98-107); CHOLESTEROL 254.31 mg/dL (0-200); GLUCOSE 300 mg/dL (75-110); POTASSIUM 4.1 mmol/L (3.6-5.0); SODIUM 135.6 mmol/L (137-145); TOTAL PROTEIN 7.5 g/dL (6.3-8.2); TRIGLYCERIDES 355 mg/dL (<150)
[2018-10-25 12:23] LABS: DIRECT LDL 59 mg/dL (<100)
[2018-10-25 12:40] LABS: FREE T4 (FREE THYROXINE) 1.05 ng/dL (0.78-2.19)
[2018-10-25 12:59] LABS: THYROID STIMULATING HORMONE < 0.01 uIU/mL (0.47-4.68)
== END ==
LOC: OD 10:44
PROVIDERS: ATTEND Internal Medicine
DX: M25.511 Pain in right shoulder (principal); M25.572 Pain in left ankle and joints of left foot; I10 Essential (primary) hypertension; E03.9 Hypothyroidism, unspecified; E23.0 Hypopituitarism; J44.9 Chronic obstructive pulmonary disease, unspecified; Z79.899 Other long term (current) drug therapy
CPT/HCPCS: 36415; 80053; 80061; 84439; 84443; 85025

== ENCOUNTER 2019-06-01 13:50 | Emergency (ER) | payer OTHER, MEDICARE ==
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
[2019-06-01 15:49] VITALS: BP 160/64
== END 2019-06-01 15:47 | disposition home or self-care (01) ==
LOC: ER 13:50
DX: M54.5 Low back pain (principal); M25.551 Pain in right hip; M25.552 Pain in left hip; M79.10 Myalgia, unspecified site; V87.7XXA Person injured in collision between other specified motor vehicles (traffic), initial encounter
CPT/HCPCS: 72110; 73522; 99283